=== PATIENT | female | born 1950 | race Caucasian/White ===

== ENCOUNTER 2017-04-21 14:54 | Emergency (ER) | payer MEDICARE, BC ==
[2017-04-21 15:11] VITALS: PULSE 62
--- NOTE | 2017-04-21 15:40 | ED ---
General Adult HPI - General Chief complaint: Altered Mental Status Stated complaint: Weakness Time Seen by Provider: 04/21/17 15:19 Source: patient, family, EMS, RN notes reviewed, old records reviewed Mode of arrival: EMS - History of Present Illness Initial comments: If complaint and history of present illness 66-year-old female here with her son. The patient was brought in by embolus because of a hypoglycemic reaction. The patient was found not acting in normal fashion by her son. He called EMS EMS responded checked her sugar was 50 gave her IV glucose and she improved significantly upon arrival to the emergency room. At this time no complaints of any headaches is not confused all systems within normal limits. - Related Data Home Medications Medication Instructions Recorded Confirmed ALPRAZolam [Xanax] 0.25 mg PO DAILY PRN 04/21/17 04/21/17 Anastrozole [Arimidex] 1 mg PO DAILY 04/21/17 04/21/17 Aspirin 325 mg PO DAILY 04/21/17 04/21/17 INSULIN LISPRO (HumaLOG) [HumaLOG] 8 units SQ AC-BID 04/21/17 04/21/17 Ibuprofen [Motrin] 400 - 800 mg PO Q6HR PRN 04/21/17 04/21/17 Insulin Glargine [Lantus] 24 unit SQ HS 04/21/17 04/21/17 Multivitamins, Thera [Multivitamin 1 tab PO DAILY 04/21/17 04/21/17 (formulary)] Oxybutynin Chloride [Ditropan] 5 mg PO BID 04/21/17 04/21/17 Simvastatin [Zocor] 20 mg PO HS 04/21/17 04/21/17 amLODIPine [Norvasc] 10 mg PO DAILY 04/21/17 04/21/17 diphenhydrAMINE [Benadryl] 50 mg PO HS PRN 04/21/17 04/21/17 levETIRAcetam [Keppra] 500 mg PO Q12HR 04/21/17 04/21/17 metFORMIN HCL [Glucophage] 500 mg PO BID 04/21/17 04/21/17 traMADol HCL [Ultram] 50 mg PO Q6H PRN 04/21/17 04/21/17 Allergies Allergy/AdvReac Type Severity Reaction Status Date / Time enalapril Allergy Itching Verified 04/21/17 15:20 hydromorphone [From Dilaudid] Allergy Confusion Verified 04/21/17 15:20 lisinopril Allergy Itching Verified 04/21/17 15:20 sumatriptan [From Imitrex] Allergy Dyspnea Verified 04/21/17 15:20 valsartan [From Diovan] Allergy Itching Verified 04/21/17 15:20 Review of Systems ROS Statement: Those systems with pertinent positive or pertinent negative responses have been documented in the HPI. Review of systems patient has chronic headache but currently no significant visual acuity changes no chest pain shows breath GI/ problems. All systems are reviewed. Past medical problems breast cancer, insulin-dependent diabetes mellitus. Patient reports she gave herself insulin within feel hungry didn't eat. This resulted in a hypoglycemic reaction. Also history of hyperlipidemia , hypertension and pneumonia chronic migraines and arthritis. The patient's surgeries include breast surgery, tonsillectomy, brain surgery for meningioma. Family history father had multiple myeloma. Patient has ALLERGIES to enalapril , hydromorphone, lisinopril, sumatriptan and valsartan. Patient quit smoking and drinking 30 years ago. ROS Other: All systems not noted in ROS Statement are negative. Past Medical History Past Medical History: Cancer, Diabetes Mellitus, Hyperlipidemia, Hypertension, Pneumonia Additional Past Medical History / Comment(s): migraines, arthritis Past Surgical History: Breast Surgery, Tonsillectomy Additional Past Surgical History / Comment(s): lumpectomy (2014), craniotomy ( 2015) Past Psychological History: Anxiety Smoking Status: Former smoker Past Alcohol Use History: None Reported Past Drug Use History: None Reported General Exam - General Exam Comments Initial Comments: General: The patient is awake and alert, in no distress, and does not appear acutely ill. Patient was given IV glucose by EMS and is improving even upon arrival to emergency room. At home her blood sugar was only 50. And she did have altered mental status. No evidence of any stroke-type symptoms. Vital signs shows temperature 97.7 pulse 62 respiratory rate 18 pulse ox 99% room air blood pressure 175/78 Eye: Pupils are equal, round and reactive to light, extra-ocular movements are intact ; there is normal conjunctiva bilaterally. No signs of icterus. Questionable count fingers at 10 feet. Ears, nose, mouth and throat: There are moist mucous membranes and no oral lesions. Neck: The neck is supple, there is no tenderness . Cardiovascular: There is a regular rate and rhythm. No murmur, rub or gallop is appreciated. Respiratory: Lungs are clear to auscultation, respirations are non-labored, breath sounds are equal. No wheezes, stridor, rales, or rhonchi. Gastrointestinal: No abdominal pain, nausea vomiting no diarrhea.. Back: No complaint of back pain. Musculoskeletal: Normal ROM, no tenderness, There is no pedal edema. There is no calf tenderness or swelling. Sensation intact. Pulses equal bilaterally 2+. Neurological: CN II-XII intact, There are no obvious motor or sensory deficits. Coordination appears grossly intact. Speech is normal. No neuro deficits. Skin: Skin is warm and dry and no rashes or lesions are noted. Course Vital Signs 04/21/17 04/21/17 15:03 15:57 Temperature 97.7 F 97.1 F L Pulse Rate 62 62 Respiratory 18 16 Rate Blood Pressure 175/78 163/76 O2 Sat by Pulse 99 98 Oximetry Medical Decision Making - Medical Decision Making Discuss hypoglycemic reactions. 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 On discharge patient is alert and oriented. She ate, drank orange juice. On discharge blood sugar is 100. - Lab Data Lab Results 04/21/17 Range/Units 15:50 POC Glucose (mg/dL) 99 (75-99) mg/dL POC Glu Office Machine Inspector ID [email or web address] Disposition Clinical Impression: Hypoglycemic reaction to insulin Disposition: HOME SELF-CARE Condition: Fair Instructions: Hypoglycemia in a Person with Diabetes (ED) Referrals: Mk Overton MD [Primary Care Provider] - 1-2 days Time of Disposition: 16:02
[2017-04-21 15:51] LABS: Glucose,Whole Blood 99 mg/dL (75-99)
[2017-04-21 15:58] VITALS: BP 163/76; RESP 16; TEMP 97.1
== END 2017-04-21 16:12 | disposition home or self-care (01) ==
LOC: EC 14:54
DX: E11.649 Type 2 diabetes mellitus with hypoglycemia without coma (principal); T38.3X5A Adverse effect of insulin and oral hypoglycemic [antidiabetic] drugs, initial encounter; R41.82 Altered mental status, unspecified; E78.5 Hyperlipidemia, unspecified; I10 Essential (primary) hypertension; M19.90 Unspecified osteoarthritis, unspecified site; Z87.891 Personal history of nicotine dependence; Z79.4 Long term (current) use of insulin; Z79.82 Long term (current) use of aspirin; Z79.84 Long term (current) use of oral hypoglycemic drugs; Z79.899 Other long term (current) drug therapy; Z88.5 Allergy status to narcotic agent; Z88.8 Allergy status to other drugs, medicaments and biological substances; Z85.3 Personal history of malignant neoplasm of breast; Z98.890 Other specified postprocedural states; Y93.89 Activity, other specified
CPT/HCPCS: 36415; 99285